=== PATIENT | female | born 1985 | race Caucasian/White ===

== ENCOUNTER → 2017-04-23 | Outpatient (CLI) | payer MEDICARE, OTHER ==
--- NOTE | 2017-04-23 13:28 | US ---
EXAM DESCRIPTION: Pelvis Transvaginal CLINICAL HISTORY: DYSMENORRHEA COMPARISON: None. TECHNIQUE: Real-time sonographic images of the pelvis are obtained transabdominally. FINDINGS: The uterus measures 8.9 x 4.1 x 5.4 cm. The uterus is anteverted. The endometrium is mostly hyperechoic measuring 6.3mm in thickness. There is a hypoechoic subserosal/intramural mass in the anterior mid uterine fundus measuring 2.4 x 2.1 x 2.7 cm. There is an anterior superior uterine fundus hypoechoic intramural to subserosal mass measuring 2.7 x 2.9 x 1.9 cm. The right ovary measures 2.2 x 1.7 x 1.7cm. The left ovary measures 1.9 x 1.3 x 1.7cm. Both ovaries show normal vascular flow. No abnormal adnexal mass or fluid collection is seen. IMPRESSION: There are at least 2 anterior mid and superior uterine fundus fibroid identified measuring up to 2.7 cm greatest diameter. Electronically signed by: Shekhar Grace MD 04/23/2017 1:25 PM CDT
== END | disposition home or self-care (01) ==
LOC: US 08:05
PROVIDERS: ATTEND Nurse Practitioner Family
DX: N94.6 Dysmenorrhea, unspecified (principal); E66.9 Obesity, unspecified

== ENCOUNTER 2017-10-10 21:00 | Emergency (ER) | payer MEDICARE, MEDICAID ==
[2017-10-10] MEDS ORDERED: SODIUM CHLORIDE 0.9% 1000ML 1,000 ML IVS ONE (21:21)
[2017-10-10] MEDS ORDERED: ALUMINUM & MAGNESIUM HYDROXIDE 30 ML UD ONE (21:21)
[2017-10-10] MEDS ORDERED: ACETAMINOPHEN 325 MG TAB ONE (21:21)
[2017-10-10] MEDS ORDERED: ONDANSETRON ODT 8 MG TAB ONE (21:21)
[2017-10-10] MEDS ORDERED: POTASSIUM CHLORIDE ELIXIR 20 MEQ/15 ML UD PO ONE (23:25)
--- NOTE | 2017-10-11 00:01 | ED.PDOC ---
History of Present Illness - General Time Seen by Provider: 10/10/17 22:56 Source: patient Exam Limitations: no limitations - History of Present Illness Initial Comments: the patient is a 31-year-old female presenting to the emergency room secondary to several episodes of nausea and vomiting and a few episodes of diarrhea starting this morning after breakfast. No definite fevers although she does have a fever when measured here. No real abdominal pain just irritability. No syncope. No history of any electrolyte abnormalities.no blood in either vomit or stool. No bile. Timing/Duration: 24 hours Severity: moderate Improving Factors: nothing Worsening Factors: nothing Associated Symptoms: denies symptoms Home Medications: Ambulatory Orders Ondansetron [Zofran Odt] 4 mg PO Q4H PRN #10 tab 10/11/17 Promethazine HCl 25 mg PO Q6H PRN #10 tab 10/11/17 Review of Systems - Review of Systems Constitutional: States: malaise EENTM: States: no symptoms reported Respiratory: States: no symptoms reported Cardiology: States: no symptoms reported Gastrointestinal/Abdominal: States: diarrhea, nausea, vomiting Genitourinary: States: no symptoms reported Musculoskeletal: States: no symptoms reported Skin: States: no symptoms reported Neurological: States: no symptoms reported Endocrine: States: no symptoms reported All other Systems: No Change from Baseline Physical Exam - Physical Exam General Appearance: Alert, Comfortable, No apparent distress Eye Exam: bilateral normal Ears, Nose, Throat: hearing grossly normal, normal ENT inspection, normal pharynx Neck: non-tender, full range of motion Respiratory: lungs clear, normal breath sounds, no respiratory distress, no accessory muscle use Cardiovascular/Chest: normal peripheral pulses, regular rate, rhythm, no edema Peripheral Pulses: radial,right: 2+, radial,left: 2+, dorsalis pedis,right: 2+, dorsalis pedis,left: 2+ Gastrointestinal/Abdominal: non tender, soft Rectal Exam: deferred Back Exam: no CVA tenderness, no vertebral tenderness Extremity: non-tender, normal inspection, no pedal edema, normal capillary refill 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 It is uncertain whether it's a viral or bacterial origin. Antibiotics are not warranted at this time and would likely worsen symptoms. She has received a liter of IV fluids for mild dehydration. 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 She can additionally take Maalox liquid as needed. She did have some mild low potassium here today. She was given a dose here today. She should have this rechecked with her primary care doctor next week. ER warnings were given for any significant worsening, which would certainly indicate additional workup. She'll be written for Zofran for as needed use to control any vomiting. - Results/Orders Results/Orders: Laboratory Tests 10/10/17 10/10/17 10/10/17 21:15 21:15 21:15 WBC 10.9 H RBC 5.69 H Hgb 15.1 Hct 44.5 MCV 78.2 L MCH 26.5 L MCHC 34.1 RDW 14.2 Plt Count 362 MPV 8.1 Absolute Neuts (auto) 10.00 H Absolute Lymphs (auto) 0.50 L Absolute Monos (auto) 0.30 Absolute Eos (auto) 0.00 Absolute Basos (auto) 0.10 Neutrophils % 91.6 H Lymphocytes % 4.8 L Monocytes % 3.0 Eosinophils % 0.0 L Basophils % 0.6 Sodium 135 Potassium 3.0 L Chloride 102 Carbon Dioxide 24 Anion Gap 12.0 BUN 15 Creatinine 0.55 L BUN/Creatinine Ratio 27.3 H Random Glucose 117 H Serum Osmolality 272.0 L Calcium 8.5 Magnesium 1.7 L Total Bilirubin 1.4 H AST 35 ALT 37 Alkaline Phosphatase 70 Creatine Kinase 460 H* CK-MB (CK-2) 6.3 H* Troponin I 0.02 Serum Total Protein 7.5 Albumin 3.3 Globulin 4.2 H Albumin/Globulin Ratio 0.8 L Amylase 64 Lipase 23 Serum HCG, Qual Urine Color Urine Appearance Urine pH Ur Specific Elizabeth Urine Protein Urine Glucose (UA) Urine Ketones Urine Blood Urine Nitrite Urine Bilirubin Urine Urobilinogen Ur Leukocyte Esterase Urine RBC Urine WBC Ur Epithelial Cells Urine Bacteria Urine Mucus 10/10/17 10/10/17 21:15 21:15 WBC RBC Hgb Hct MCV MCH MCHC RDW Plt Count MPV Absolute Neuts (auto) Absolute Lymphs (auto) Absolute Monos (auto) Absolute Eos (auto) Absolute Basos (auto) Neutrophils % Lymphocytes % Monocytes % Eosinophils % Basophils % Sodium Potassium Chloride Carbon Dioxide Anion Gap BUN Creatinine BUN/Creatinine Ratio Random Glucose Serum Osmolality Calcium Magnesium Total Bilirubin AST ALT Alkaline Phosphatase Creatine Kinase CK-MB (CK-2) Troponin I Serum Total Protein Albumin Globulin Albumin/Globulin Ratio Amylase Lipase Serum HCG, Qual Negative Urine Color Yellow Urine Appearance Clear Urine pH 5.5 Ur Specific Elizabeth 1.025 Urine Protein Negative Urine Glucose (UA) Negative Urine Ketones 80 H Urine Blood Negative Urine Nitrite Negative Urine Bilirubin Negative Urine Urobilinogen 0.2 Ur Leukocyte Esterase Negative Urine RBC 0 Urine WBC 1-3 Ur Epithelial Cells 3-5 Urine Bacteria 1+ Urine Mucus Moderate Departure - Departure Clinical Impression: Gastroenteritis Disposition: Discharge to Home or Self Care Condition: Fair Diet: bland diet Activity: increase activity as tolerated Referrals: Dyan Brown NP [Primary Care Provider] - 1-2 Weeks Prescriptions: Ondansetron [Zofran Odt] 4 mg PO Q4H PRN #10 tab PRN Reason: Vomiting Promethazine HCl 25 mg PO Q6H PRN #10 tab PRN Reason: Vomiting Home Medications: Ambulatory Orders Ondansetron [Zofran Odt] 4 mg PO Q4H PRN #10 tab 10/11/17 Promethazine HCl 25 mg PO Q6H PRN #10 tab 10/11/17 Additional Instructions: the patient's 31-year-old female presenting with what appears to be a gastroenteritis. It is uncertain whether it's a viral or bacterial origin. Antibiotics are not warranted at this time and would likely worsen symptoms. She has received a liter of IV fluids for mild dehydration. 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 She can additionally take Maalox liquid as needed. She did have some mild low potassium here today. She was given a dose here today. She should have this rechecked with her primary care doctor next week. ER warnings were given for any significant worsening, which would certainly indicate additional workup. She'll be written for Zofran for as needed use to control any vomiting.
[2017-10-11 00:21] VITALS: O2SAT 100
[2017-10-11 00:22] VITALS: BP 111/73; TEMP 99.2
== END 2017-10-11 00:15 | disposition home or self-care (01) ==
LOC: ER 21:00
DX: K52.9 Noninfective gastroenteritis and colitis, unspecified (principal); E86.0 Dehydration
CPT/HCPCS: 36415; 80053; 81001; 82150; 82550; 82553; 83690; 83735; 84484; 84703; 85025; J7030